=== PATIENT | female | born 1990 ===

== ENCOUNTER 2016-11-03 20:50 | Emergency (ER) | payer SELFPAY ==
[2016-11-03 21:09] LABS: SPECIFIC GRAVITY 1.015 (1.001-1.030); URINE BILIRUBIN NEGATIVE (NEGATIVE); URINE BLOOD 4+ (NEGATIVE); URINE GLUCOSE (UA) NEGATIVE (NEGATIVE); URINE LEUKOCYTE ESTERASE 2+ (NEGATIVE); URINE NITRITE NEGATIVE (NEGATIVE); URINE PROTEIN TRACE (NEGATIVE); URINE UROBILINOGEN NORMAL (0-1 mg/dl)
[2016-11-03 21:11] LABS: URINE APPEARANCE HAZY; URINE COLOR LIGHT YELLOW
[2016-11-03 21:12] LABS: HCG,QUALITATIVE URINE NEGATIVE
[2016-11-03 21:21] LABS: URINE BACTERIA 2+; URINE RBC 15-20 /hpf; URINE WBC >100 /hpf
[2016-11-03] MEDS ORDERED: CEPHALEXIN 500 MG CAPSULE ONE (23:18)
[2016-11-03] MEDS ORDERED: ONDANSETRON 4 MG ODT TAB ONE (23:18)
[2016-11-03] MEDS ORDERED: KETOROLAC TROMETHAMINE 60 MG/2 ML VIAL ONE (23:18)
== END 2016-11-04 00:58 | disposition home or self-care (01) ==
LOC: ED 20:50
DX: N39.0 Urinary tract infection, site not specified (principal)
CPT/HCPCS: 81025; 87086; 81001; 99283 ×2; 96372; A9270 ×2; J1885